=== PATIENT | male | born 1975 | race African-American/Black ===

== ENCOUNTER 2017-01-14 11:20 | Outpatient (CLI) | payer MEDICARE, MEDICAID ==
[2017-01-14 16:48] LABS: ALT (SGPT) 19 U/L (8-55); AST (SGOT) 23 U/L (5-34); Albumin 4.5 g/dL (3.5-5.0); Alkaline Phosphatase 45 U/L (40-150); Anion Gap 17 mmol/L (10-20); BUN (Urea Nitrogen) 16 mg/dL (8.9-20.6); Bilirubin, Total 0.5 mg/dL (0.2-1.2); Calc. Creatinine Clearance 0 mL/min (70-130); Calcium 9.7 mg/dL (7.8-10.44); Carbon Dioxide 28 mmol/L (22-29); Cardiac Risk 3.9 (Less than 4.5); Chloride 102 mmol/L (98-107); Cholesterol 154 mg/dl (< 200 Desired); Estimated GFR-MDRD 84; Globulin 3.6 g/dL (2.4-3.5); Glucose 104 mg/dL (70-105); HDL Cholesterol 39 mg/dL (>60 Neg Risk); LDL Cholesterol, Calculated 91 mg/dL; Potassium 5.7 mmol/L (3.5-5.1); Protein, Total 8.1 g/dL (6.0-8.3); Sodium 141 mmol/L (136-145); Triglycerides 121 mg/dL (Less than 150)
[2017-01-14 17:04] LABS: #Basophils 0.1 thou/uL (0.0-0.2); #Eosinphils 0.1 thou/uL (0.0-0.7); #Lymphocytes 2.7 thou/uL (1.20-3.40); #Monocytes 0.3 thou/uL (0.11-0.59); #Neutrophils 4.6 thou/uL (1.40-6.50); %Basophils 1.5 % (0.0-1.0); %Eosinophils 0.7 % (0.0-10.0); %Lymphocytes 34.3 % (21.0-51.0); %Monocytes 4.4 % (0.0-10.0); Hemoglobin 14.3 g/dL (14.0-18.0); Mean Corpuscular HGB CONC 30.8 g/dL (32.0-36.0); Mean Corpuscular Hemoglobin 27.1 pg (27.0-31.0); Mean Corpuscular Volume 88.2 fl (80.0-94.0); Mean Platelet Volume 7.6 fL (7.4-10.4); Platelet Count 239 thou/uL (130-400); RBC Distribution Width 13.3 % (11.5-14.5); Red Blood Cell (RBC) Count 5.27 mill/uL (4.70-6.10); White Blood Cell (WBC) Count 7.7 thou/uL (4.8-10.8)
[2017-01-14 17:22] LABS: Hemoglobin A1c 6.1 % (4.0-6.0)
[2017-01-14 18:33] LABS: Iron 86 ug/dL (65-175); Iron Binding Capacity, Total 256 mcg/dL (261-462)
[2017-01-14 18:39] LABS: Creatinine, Urine 149.33 mg/dL (63-166); Microalbumin Urine Less than 1.0 mg/dL (0.5-50.0); Microalbumin/Creat Ratio 6.7 mg/g (Less than 30)
== END 2017-01-14 11:21 | disposition home or self-care (01) ==
LOC: LABLEX 11:20
PROVIDERS: ATTEND Family Medicine
DX: E78.5 Hyperlipidemia, unspecified (principal); I10 Essential (primary) hypertension; E11.9 Type 2 diabetes mellitus without complications; D64.9 Anemia, unspecified
CPT/HCPCS: 80053; 80061; 82043; 83036; 83540; 83550; 85025

== ENCOUNTER 2017-01-24 09:11 | Outpatient (CLI) | payer MEDICARE, MEDICAID ==
[2017-01-24 10:06] LABS: ALT (SGPT) 20 U/L (8-55); AST (SGOT) 22 U/L (5-34); Albumin 4.4 g/dL (3.5-5.0); Alkaline Phosphatase 42 U/L (40-150); Bilirubin, Direct 0.2 mg/dL (0.1-0.3); Bilirubin, Total 0.4 mg/dL (0.2-1.2)
[2017-01-24 17:55] LABS: HBSAg Index 0.19 S/CO (0-0.99); Hep B Surf Ag Non-Reactive S/CO (NonReactive)
[2017-01-24 19:17] LABS: Hep B Core Total Ab Reactive (NonReactive); Hep B Surf AB Reactive (NonReactive)
[2017-01-24 19:25] LABS: HBSAB Concentration 76.43 mIU/mL
--- NOTE | 2017-01-24 19:39 | ULT ---
RIGHT UPPER QUADRANT ULTRASOUND: Date: 01-24-17 Technique: Ultrasound of the right upper quadrant was performed in this patent with a history of Hep atitis B. Comparison: 05-21-16 FINDINGS: The liver is normal in size and appearance. It is 12.2 cm in oblique sagittal length which is slight ly smaller than it was previously. Internally I see no masses or dilated ducts. The gallbladder cont ained no signs of stones or wall thickening. The common bile duct was borderline in size at 6 mm in width. The right kidney showed no mass or hydronephrosis. It was 8.7 cm long. The pancreas was parti ally obscured by gas, but the visible areas seemed normal. Portal venous flow in the liver was trave ling towards the liver as expected. IMPRESSION: No adverse change since 2016 scan. No focal abnormalities of concern seen. POS: HOME
== END 2017-01-24 09:12 | disposition home or self-care (01) ==
LOC: BURULT 09:11
PROVIDERS: ATTEND Internal Medicine Gastroenterology
DX: B19.10 Unspecified viral hepatitis B without hepatic coma (principal)
CPT/HCPCS: 76705; 80076; 82105; 86704; 86706; 86707; 87340; 87350; 87517

== ENCOUNTER 2017-07-16 08:55 | Outpatient (CLI) | payer MEDICARE, MEDICAID ==
--- NOTE | 2017-07-16 19:51 | ULT ---
RIGHT UPPER QUADRANT ULTRASOUND 07/16/17 Ultrasonography of the right upper quadrant was performed for evaluation of elevated liver function t ests. The liver was unremarkable in appearance. It was 12.6 cm in oblique sagittal length. No dilated ducts or masses were apparent. Portal venous flow was towards the liver as expected. The gallbladder conta ined sludge within it and what appears to be a few small gallstones as well. The wall is not thick. T he common bile duct is a normal 5 mm in caliber. The pancreas was obscured by gas. The right kidney a ppears normal and is 9.9 cm long. IMPRESSION: 1. No significant hepatic findings. 2. Sludge in the gallbladder as well as a few very tiny gallstones were suggested as well. POS: HOME
== END 2017-07-16 08:56 | disposition home or self-care (01) ==
LOC: BURULT 08:55
PROVIDERS: ATTEND Internal Medicine Gastroenterology
DX: B19.10 Unspecified viral hepatitis B without hepatic coma (principal); R94.5 Abnormal results of liver function studies; K83.8 Other specified diseases of biliary tract
CPT/HCPCS: 76705

== ENCOUNTER 2018-05-27 08:45 | Outpatient (CLI) | payer MEDICARE, MEDICAID ==
--- NOTE | 2018-05-27 11:09 | ULT ---
RIGHT UPPER QUADRANT ABDOMINAL ULTRASOUND: HISTORY: Hepatitis B. COMPARISON: 07/16/2017 TECHNIQUE: Multiplanar tom-scale and color Doppler images were obtained in a right upper quadrant abdominal ult rasound. FINDINGS: The liver is increased in echogenicity without focal lesions or intrahepatic ductal dilatation. The gallbladder contains small echogenic lesions without shadowing, which may represent sludge or nonshad owing gallstones. The common bile duct is normal, measuring 4 mm. There is no gallbladder wall thic kening or pericholecystic fluid. The visualized portions of the pancreas are unremarkable. The right kidney is normal in echogenicity without hydronephrosis or calculus and measures 10.4 cm in length. IMPRESSION: 1. Fatty liver. 2. Gallbladder sludge. POS: [facility]
[2018-05-27 17:39] LABS: Hemoglobin A1c 6.1 % (4.0-6.0)
[2018-05-27 17:51] LABS: ALT (SGPT) 18 U/L (8-55); AST (SGOT) 21 U/L (5-34); Albumin 4.7 g/dL (3.5-5.0); Alkaline Phosphatase 42 U/L (40-150); Anion Gap 15 mmol/L (10-20); BUN (Urea Nitrogen) 15 mg/dL (8.9-20.6); Bilirubin, Total 0.5 mg/dL (0.2-1.2); Calc. Creatinine Clearance 0 mL/min (70-130); Calcium 10.1 mg/dL (7.8-10.44); Carbon Dioxide 30 mmol/L (22-29); Chloride 102 mmol/L (98-107); Estimated GFR-MDRD Greater than 90; Globulin 3.3 g/dL (2.4-3.5); Glucose 106 mg/dL (70-105); Potassium 4.4 mmol/L (3.5-5.1); Sodium 143 mmol/L (136-145)
[2018-05-27 18:05] LABS: #Eosinphils 0.1 thou/uL (0.0-0.7); #Lymphocytes 2.1 thou/uL (1.20-3.40); #Monocytes 0.5 thou/uL (0.11-0.59); #Neutrophils 4.6 thou/uL (1.40-6.50); %Basophils 0.6 % (0.0-1.0); %Eosinophils 0.8 % (0.0-10.0); %Lymphocytes 29.5 % (21.0-51.0); %Monocytes 6.2 % (0.0-10.0); %Neutrophils 62.9 % (42.0-75.0); Hemoglobin 13.5 g/dL (14.0-18.0); Mean Corpuscular HGB CONC 31.2 g/dL (32.0-36.0); Mean Corpuscular Hemoglobin 27.2 pg (27.0-31.0); Mean Corpuscular Volume 87.2 fL (78.0-98.0); Mean Platelet Volume 7.8 fL (7.4-10.4); Platelet Count 302 thou/uL (130-400); Red Blood Cell (RBC) Count 4.95 mill/uL (4.70-6.10); White Blood Cell (WBC) Count 7.2 thou/uL (4.8-10.8)
[2018-05-27 18:06] LABS: HBSAg Index 0.21 S/CO (0-0.99); Hep B Surf Ag Non-Reactive S/CO (NonReactive)
[2018-05-27 19:17] LABS: HBSAB Concentration 250.98 mIU/mL; Hep B Surf AB Reactive (NonReactive)
[2018-05-30 22:08] LABS: HBV as IU/mL <10 IU/mL (.)
== END 2018-05-27 08:46 | disposition home or self-care (01) ==
LOC: BURULT 08:45
PROVIDERS: ATTEND Internal Medicine Gastroenterology
DX: B19.10 Unspecified viral hepatitis B without hepatic coma (principal); B18.1 Chronic viral hepatitis B without delta-agent; E11.9 Type 2 diabetes mellitus without complications
CPT/HCPCS: 36415; 76705; 80053; 82105; 83036; 85025; 86706; 86707; 87340; 87350; 87517

== ENCOUNTER 2019-10-05 10:02 | Outpatient (CLI) | payer MEDICARE, MEDICAID ==
--- NOTE | 2019-10-05 12:00 | ULT ---
EXAM: US Abdomen Limited CLINICAL HISTORY: Follow-up exam. Hepatitis B.. COMPARISON: 05/27/2018 FINDINGS: Pancreas: Obscured by bowel gas Liver:Diffuse heterogeneity throughout the hepatic parenchyma. Limited evaluation for hepatic masses and intrahepatic biliary dilatation. The contour of the hepatic margin appears to be maintained. Right hepatic lobe: 16 cm Gallbladder: No sonographic evidence of cholelithiasis, gallbladder wall thickening or pericholecysti c fluid. Redd's sign:Negative Portal Vein: Patent. Appropriate directional flow Bile ducts: 0.4 cm common bile duct diameter Right kidney: No hydronephrosis. Right kidney measures 5.0 x 5.6 x 9.8 cm in length. IMPRESSION: 1. Diffuse heterogeneity of the liver compatible with hepatic steatosis or hepatocellular disease. Fi ndings are unchanged. 2. No sonographic evidence of cholelithiasis cystitis. 3. If there is concern for possible underlying hepatic masses, consider abdomen MRI or liver mass pro tocol CT
[2019-10-05 16:37] LABS: ALT (SGPT) 18 U/L (8-55); AST (SGOT) 21 U/L (5-34); Albumin 4.8 g/dL (3.5-5.0); Alkaline Phosphatase 50 U/L (40-110); Bilirubin, Direct 0.3 mg/dL (0.1-0.3); Bilirubin, Total 0.6 mg/dL (0.2-1.2); Protein, Total 7.9 g/dL (6.0-8.3)
== END 2019-10-05 10:03 | disposition home or self-care (01) ==
LOC: BURULT 10:02
PROVIDERS: ATTEND Internal Medicine Gastroenterology
DX: B19.10 Unspecified viral hepatitis B without hepatic coma (principal); R93.2 Abnormal findings on diagnostic imaging of liver and biliary tract
CPT/HCPCS: 36415; 76705; 80076; 82105